=== PATIENT | male | born 1995 | race Caucasian/White ===

== ENCOUNTER 2016-10-18 10:25 | Outpatient (CLI) | payer OTHER, BC | END 2016-10-18 10:26 | disposition home or self-care (01) | DX: Z79.899 Other long term (current) drug therapy (principal); E66.9 Obesity, unspecified; F52.21 Male erectile disorder; R68.82 Decreased libido; G47.33 Obstructive sleep apnea (adult) (pediatric); F41.8 Other specified anxiety disorders; E78.5 Hyperlipidemia, unspecified ==

== ENCOUNTER 2016-10-23 11:12 | Outpatient (CLI) | payer BC, OTHER | END 2016-10-23 11:13 | disposition home or self-care (01) | DX: E29.1 Testicular hypofunction (principal) ==

== ENCOUNTER 2017-11-13 19:33 | Emergency (ER) | payer OTHER, BC ==
[2017-11-13 20:53] LABS: BASOPHILS % (AUTO) 0.3 %; EOSINOPHILS # (AUTO) 0.4 10^3/uL (0.0-0.7); EOSINOPHILS % (AUTO) 2.9 %; HGB - HEMOGLOBIN 14.8 g/dL (14.0-18.0); LYMPHOCYTES # (AUTO) 2.6 10^3/uL (1.5-3.5); LYMPHOCYTES % (AUTO) 17.8 %; MEAN CORPUSCULAR HEMOGLOBIN 27.9 pg (27.0-31.0); MEAN CORPUSCULAR VOLUME 84.5 fL (80.0-94.0); MEAN PLATELET VOLUME 7.5 fL (7.4-11.4); MONOCYTES # (AUTO) 0.8 10^3/uL (0.0-1.0); MONOCYTES % (AUTO) 5.5 %; NEUTROPHILS # (AUTO) 10.7 10^3/uL (1.5-6.6); NEUTROPHILS % (AUTO) 73.5 %; PLT - PLATELET COUNT 290 10^3/uL (130-450); RED CELL DISTRIBUTION WIDTH 13.5 % (12.0-15.0); WHITE BLOOD COUNT 14.5 x10^3/uL (4.8-10.8)
[2017-11-13 21:02] LABS: ALBUMIN 4.4 g/dL (3.2-5.5); ALBUMIN/GLOBULIN RATIO 1.3 (1.0-2.2); BILIRUBIN,TOTAL 0.6 mg/dL (0.2-1.0); CALCIUM 9.3 mg/dL (8.5-10.3); CREATININE 0.7 mg/dL (0.6-1.2); TOTAL PROTEIN 7.8 g/dL (6.7-8.2)
[2017-11-13] MEDS ORDERED: AMPICILLIN/SULBACTAM 1.5 GM in SODIUM CHLORIDE 0.9% MINIBAG 100 ML IV STA (21:09)
--- NOTE | 2017-11-13 21:38 | ED Physician Documentation ---
PD HPI ANIMAL BITE - Stated complaint Stated Complaint: DOG BITE - L HAND - Chief complaint Chief Complaint: Wound - History obtained from History obtained from: Patient - History of Present Illness Location of injury(ies): Left hand Details of the event: Dog, Bite, Pet animal, Well appearing, Immunized, Provoked Timing - onset: Yesterday Timing - details: Abrupt onset Worsened by: Moving, Palpating Contributing factors: No: Immunocompromised Similar symptoms before: Has not had sx before Recently seen: Not recently seen - Additional information Additional information: Patient is a 21 year old male with no significant past medical history who is presenting to the emergency department for dog bite. patient states that he was bit by his friend's dog yesterday. Patient states that the dog is vaccinated he just got too close to the dog. patient states that his hand became more painful with streaking redness so he came in for evaluation. Review of Systems Constitutional: denies: Fever, Chills Eyes: reports: Reviewed and negative Ears: reports: Reviewed and negative Nose: reports: Reviewed and negative Throat: reports: Reviewed and negative Cardiac: reports: Reviewed and negative Respiratory: reports: Reviewed and negative GI: denies: Abdominal Pain, Nausea, Vomiting : reports: Reviewed and negative Skin: reports: Rash, Lesions Musculoskeletal: reports: Extremity pain, Extremity swelling Neurologic: reports: Reviewed and negative. denies: Generalized weakness, Focal weakness, Numbness Immunocompromised: denies: Immunocompromised PD PAST MEDICAL HISTORY - Past Medical History Cardiovascular: Hypertension Respiratory: Sleep apnea, CPAP use Neuro: None Endocrine/Autoimmune: None : None HEENT: None Psych: Depression Musculoskeletal: None Derm: None - Past Surgical History Past Surgical History: No - Present Medications Home Medications: Ambulatory Orders Medication Instructions Recorded Confirmed Fluoxetine HCl [Prozac] 40 mg PO DAILY 11/06/14 03/09/15 Amox/Clav 875/125 [Augmentin] 1 each PO Q12H #14 tablet 11/13/17 Testosterone [Androgel] 5 gm TD 11/13/17 - Allergies Allergies/Adverse Reactions: Allergies Allergy/AdvReac Type Severity Reaction Status Date / Time lisinopril Allergy Severe Anaphylaxis Verified 11/13/17 19:41 lactose Allergy Unknown Verified 11/13/17 19:41 - Social History Does the pt smoke?: No Smoking Status: Never smoker Does the pt drink ETOH?: No Does the pt have substance abuse?: No - Immunizations Immunizations are current?: Yes - POLST Patient has POLST: No PD ED PE NORMAL - Vitals Vital signs reviewed: Yes - General General: Alert and oriented X 3 - HEENT HEENT: Atraumatic, PERRL - Neck Neck: Supple, no meningeal sign - Cardiac Cardiac: RRR - Respiratory Respiratory: No respiratory distress - Neuro Neuro: Alert and oriented X 3, No motor deficit, No sensory deficit, Normal speech Eye Opening: Spontaneous Motor: Obeys Commands Verbal: Oriented GCS Score: 15 PD ED PE EXPANDED - Extremities Extremities: Left hand (tenderness and swellingn of left hand with two puncture navarro, surrounding erythema) Results - Vitals Vitals: Vital Signs - 24 hr 11/13/17 19:38 Temperature 37 C Heart Rate 112 H Respiratory 18 Rate Blood Pressure 167/97 H O2 Saturation 98 Oxygen O2 Source Room air - Labs Labs: Laboratory Tests 11/13/17 11/13/17 20:30 20:30 WBC 14.5 H RBC 5.30 Hgb 14.8 Hct 44.8 MCV 84.5 MCH 27.9 MCHC 33.0 RDW 13.5 Plt Count 290 MPV 7.5 Neut # 10.7 H Lymph # 2.6 [place] # 0.8 Eos # 0.4 Baso # 0.0 Absolute Nucleated RBC 0.00 Nucleated RBC % 0.0 Sodium 134 L Potassium 3.7 Chloride 100 L Carbon Dioxide 25 Anion Gap 9.0 BUN 13 Creatinine 0.7 Estimated GFR (MDRD) 141 Glucose 103 H Calcium 9.3 Total Bilirubin 0.6 AST 25 ALT 37 Alkaline Phosphatase 54 Total Protein 7.8 Albumin 4.4 Globulin 3.4 Albumin/Globulin Ratio 1.3 Lipase 20 L PD MEDICAL DECISION MAKING - ED course Complexity details: reviewed old records, reviewed results, re-evaluated patient , considered differential, d/w patient, d/w family ED course: Patient was seen and examined at bedside. IV access was gained and labs were drawn. Patient had already developed cellulitis. Patient was treated with a dose of unasyn. patient was able to tolerate PO and was non toxic and was appropriate for oral outpatient antibiotics. Departure - Departure Disposition: 01 Home, Self Care Clinical Impression: Animal bite with open wound Condition: Good Instructions: ED Bite Animal General Follow-Up: Chris Deshpande PA-C [Primary Care Provider] - Within 3 Days Prescriptions: Amox/Clav 875/125 [Augmentin] 1 each PO Q12H #14 tablet Comments: Your symptoms today are being caused by an infection secondary to the dog bite. You had a dose of IV antibiotics and you will be on oral antibiotics for the next week. You should keep the wound clean and dry. If the wound does not improve with the antibiotics in the next few days. you will need to return to the emergency department for further evaluation and recheck.
[2017-11-13 21:40] VITALS: BP 150/89
== END 2017-11-13 21:50 | disposition home or self-care (01) ==
LOC: ED 19:33
DX: S61.432A Puncture wound without foreign body of left hand, initial encounter (principal); L08.9 Local infection of the skin and subcutaneous tissue, unspecified; W54.0XXA Bitten by dog, initial encounter; Y92.009 Unspecified place in unspecified non-institutional (private) residence as the place of occurrence of the external cause; I10 Essential (primary) hypertension; G47.30 Sleep apnea, unspecified
CPT/HCPCS: 36415; 80053; 83690; 85025; 96365; 99283